=== PATIENT | male | born 1980 | race Caucasian/White ===

== ENCOUNTER 2016-07-17 09:22 | Emergency (ER) | payer OTHER ==
[~2016-07-17] VITALS: Ht 185.4 cm; Wt 97.6 kg
[2016-07-17 09:25] VITALS: TEMP 37; Ht 185.4 cm; Wt 97.6 kg
[2016-07-17] MEDS ORDERED: KETOROLAC TROMETHAMINE 60 MG/2 ML VIAL IM STA (09:36)
--- NOTE | 2016-07-17 10:09 | DIAGNOSTIC IMAGING REPORT ---
RIBS BILATERAL WITH PA CHEST CLINICAL HISTORY: bilateral upper anterior rib pain COMPARISON STUDY: Chest and abdominal series 03/28/2016. FINDINGS: Cholecystectomy. The lungs are clear. No pleural effusions. No pneumothorax. The heart is normal in size. No rib fractures. IMPRESSION: No rib fractures. No pneumothorax. Electronically signed by: Jerome Pressley M.D. 07/17/2016 10:07 AM Dictated Date/Time: 07/17/2016 10:05 AM
--- NOTE | 2016-07-17 10:15 | EMERGENCY ROOM VISIT NOTE ---
ED Visit Note First contact with patient: 09:33 CHIEF COMPLAINT: Rib injury HISTORY OF PRESENT ILLNESS: This 35-year-old male presents the ER with chief complaint of bilateral upper anterior rib pain. The patient states 2 days ago he bent over a fence to flower picker a child and felt a " pop" in his chest. The patient states that it took his breath away. Since that time he has increasing pain across the anterior chest which is worse with cough, movement or deep breath. The patient denies any prior rib fractures. The patient has not taken anything for pain. REVIEW OF SYSTEMS: 6 system review was performed and was negative unless stated otherwise in history of present illness. PMH: The patient is healthy; there is no significant medical or surgical history. SOCIAL HISTORY: Patient lives with his daughter. The patient admits to tobacco use but denies any alcohol use. PHYSICAL EXAM: Vital Signs: Were reviewed Reviewed Nurse's notes. General: 35- year-old white male appears uncomfortable, secondary to rib pain. MENTAL Status : Alert and oriented 3. LUNGS: Clear to auscultation and breath sounds equal, no wheezes, rales, or rhonchi. HEART: Heart sounds are regular without murmurs , ectopy, gallop, or rub. CHEST WALL: No erythema, ecchymosis or deformity noted. The patient has tenderness has tenderness to palpation over the anterior upper chest wall bilaterally. EMERGENCY DEPARTMENT COURSE: The patient was evaluated. The patient drove himself to the emergency room. The patient refused Toradol .Bilateral rib x- rays with PA chest was ordered and interpreted by the radiologist and myself. DIAGNOSTICS:RIBS BILATERAL WITH PA CHEST CLINICAL HISTORY: bilateral upper anterior rib pain COMPARISON STUDY: Chest and abdominal series 03/28/2016. FINDINGS: Cholecystectomy. The lungs are clear. No pleural effusions. No pneumothorax. The heart is normal in size. No rib fractures. IMPRESSION: No rib fractures. No pneumothorax. Electronically signed by: Jeorme Pressley M.D. 07/17/2016 10:07 AM The patient was informed of the findings. The patient was requesting a note for work for today. The patient had declined pain medications but states that he would be in agreement a muscle relaxer to take at home. The patient was discharged home in stable condition. DIAGNOSIS: Chest wall strain TREATMENT and DISCHARGE INSTRUCTIONS: Ibuprofen 600 mg every 6 hours with food for pain. Take Flexeril as directed. Do not drive while taking the Flexeril. Off work today. If symptoms are not improving in 2-3 days, follow with family doctor. Current/Historical Medications No Active Prescriptions or Reported Meds Allergies Coded Allergies: No Known Allergies (Unverified , 07/17/16) Vital Signs Date Time Temp Pulse Resp B/P Pulse Ox O2 Delivery O2 Flow Rate FiO2 07/17/16 09:25 37.0 90 18 122/83 96 Room Air Departure Information Prescriptions No Active Prescriptions or Reported Meds Referrals No Doctor, Assigned (PCP) Patient Instructions [facility]
[2016-07-17] MEDS ORDERED: CYCL10TA6 PO (10:17)
[2016-07-17 11:09] VITALS: BP 122/87; PULSE 75; O2SAT 97
== END 2016-07-17 11:11 | disposition home or self-care (01) ==
LOC: C.EDB 09:22
DX: S23.9XXA Sprain of unspecified parts of thorax, initial encounter (principal); X58.XXXA Exposure to other specified factors, initial encounter; F17.200 Nicotine dependence, unspecified, uncomplicated

== ENCOUNTER 2016-08-06 15:42 | Emergency (ER) | payer OTHER ==
[~2016-08-06] VITALS: Ht 185.4 cm; Wt 92.8 kg
[2016-08-06 15:46] VITALS: BP 127/78; PULSE 89; TEMP 37.1; O2SAT 97; Ht 185.4 cm; Wt 92.8 kg
--- NOTE | 2016-08-06 16:39 | DIAGNOSTIC IMAGING REPORT ---
LEFT THIRD FINGER 3 VIEWS CLINICAL HISTORY: Left third finger pain COMPARISON: None. DISCUSSION: No acute fractures or dislocations are visualized. There are no erosive or destructive changes. There is a small metallic foreign body located just dorsal to the middle phalanx of the index finger. There is mild soft tissue swelling IMPRESSION: 1. Mild soft tissue swelling 2. No fractures or dislocations identified Electronically signed by: Jorge Del Angel M.D. 08/06/2016 4:38 PM Dictated Date/Time: 08/06/2016 4:36 PM
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
[2016-08-06] MEDS ORDERED: HYDR-5688 PO (16:57)
[2016-08-06] MEDS ORDERED: AMOX875T PO (16:57)
[2016-08-06] MEDS ORDERED: METH10SO PO (17:05)
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
== END 2016-08-06 17:29 | disposition home or self-care (01) ==
LOC: C.EDB 15:43 → C.EDD 17:29
DX: S92.331A Displaced fracture of third metatarsal bone, right foot, initial encounter for closed fracture (principal); Y09 Assault by unspecified means; Y92.89 Other specified places as the place of occurrence of the external cause; F17.200 Nicotine dependence, unspecified, uncomplicated; Z79.899 Other long term (current) drug therapy